=== PATIENT | female | born 1965 | race Caucasian/White ===

== ENCOUNTER 2019-07-28 17:29 | Inpatient (IN) | payer BC ==
[~2019-07-28] VITALS: Ht 152.4 cm; Wt 67.7 kg
[~2019-07-28 17:29] MED LIST: ALBUTEROL0.09 MG/A2 INH; HYDROCODONE BIT1 T11 PO; ZITHROMAX Z PA250 MG PO
[2019-07-28 17:31] VITALS: BP 170/87
[2019-07-28 17:45] LABS: BASO % 0.4 % (0.0-1.0); EOS # 0.1 10*3/uL (0.0-0.4); EOS % 0.9 % (1.0-4.0); HEMATOCRIT 45.6 % (37.0-47.0); HEMOGLOBIN 15.2 g/dl (12.0-16.0); LYMPH # 2.2 10*3/uL (1.3-4.4); LYMPH % 24.6 % (27.0-41.0); MEAN CELL VOLUME 91.2 fl (81.0-99.0); MEAN CORPUSCULAR HGB 30.4 pg (27.0-31.0); MEAN CORPUSCULAR HGB CONC 33.3 g/dl (33.0-37.0); MEAN PLATELET VOLUME 11.7 fl (9.6-12.3); MONO # 0.6 10*3/uL (0.1-1.0); NEUT % 66.8 % (47.0-73.0); PLATELET COUNT AUTOMATED 248 10*3/uL (130-400); RED CELL DISTRI WIDTH 12.8 % (0-14.5)
[2019-07-28 18:00] LABS: ACT PARTIAL THROMBO TIME 24.9 SECONDS (20.0-32.1); INTERNATIONAL NORM RATIO 0.9 (2.0-3.5)
[2019-07-28 18:02] LABS: ALKALINE PHOSPHATASE 94 U/L (45-117); BUN 11 mg/dl (7-24); CHLORIDE 107 mmol/L (98-107); CREATININE 0.71 mg/dL (0.55-1.02); POTASSIUM 4.5 mmol/L (3.5-5.1); SGOT/AST 31 IU/L (3-35); SGPT/ALT 26 U/L (12-78); SODIUM 139 mmol/L (136-145); TOTAL PROTEIN 7.9 gm/dL (6.4-8.2)
[2019-07-28 18:03] LABS: TROPONIN I < 0.015 ng/ml (<0.045)
[2019-07-28 19:05] VITALS: BP 150/87
[2019-07-28 20:00] VITALS: BP 150/87
[2019-07-29] VITALS: BP 119/75
[2019-07-29 08:00] VITALS: BP 102/60
== END 2019-07-29 15:35 | disposition home or self-care (01) | DRG 313 ==
LOC: ED 17:29 → EDHOLD 18:21 → 4E 18:21
PROVIDERS: Emergency Medicine; ADMIT Internal Medicine
PROC: 4A02XM4 Measurement of Cardiac Total Activity, External Approach (ICD-10-PCS; principal; 2019-07-29)
DX: R07.89 Other chest pain (principal)